=== PATIENT | female | born 1995 | race Caucasian/White ===

== ENCOUNTER 2020-11-14 15:58 | Outpatient (CLI) | payer MEDICAID, SELFPAY ==
--- NOTE | ~2020-11-14 | US_ITS ---
EXAMINATION: US OB follow up DATE: 11/14/2020 16:40 INDICATION: Routine care TECHNIQUE: Real-time ultrasound of the pelvis was performed. The interpreting radiologist was not pre sent for the study. COMPARISON: None. FINDINGS: There is a single living fetus in vertex presentation. The placenta is anterior. heart rate is 142 beats per minute (bpm). The amniotic fluid index is 12.4 cm, which is normal (5th%-95%: 8.6-24. 2 cm at 32 weeks estimated gestational age). The following biometric data were obtained: BPD: 8.0 cm -> 32 weeks 1 days Head circumference: 30.2 cm -> 33 weeks 4 days Abdominal circumference: 28.6 cm -> 32 weeks 4 days Femur length: 6.5 cm -> 33 weeks 4 days These measurements are concordant. Head circumference to abdominal circumference ratio: 1.06 (normal range 0.96-1.11). Estimated weight: 2085 g (+/-) 313 g. or 4 lbs. 10 oz. (+/-) 11 oz. IMPRESSION: 1. Single living fetus in vertex presentation with heart rate of 142 bpm. 2. Gestational age by ultrasound of 33 weeks 0 day(s) +/- 2 week(s) 2 day(s) with ultrasound estimate d date of delivery (DANIA) of 01/02/2021. Estimated weight is 52nd percentile by Hadlock criteria when 01/05/2021 is used as the DANIA. Please correlate with clinical information or earlier ultrasounds for most accurate DANIA. 3. Normal amniotic fluid index of 12.4 cm.. Reviewed, dictated and finalized at location A. IMPRESSION: 1. Single living fetus in vertex presentation with heart rate of 142 bpm. 2. Gestational age by ultrasound of 33 weeks 0 day(s) +/- 2 week(s) 2 day(s) wi th ultrasound estimated date of delivery (DANIA) of 01/02/2021. Estimated we ight is 52nd percentile by Hadlock criteria when 01/05/2021 is used as the DANIA. Please correlate with clinical information or earlier ultrasounds for most accu rate DANIA. 3. Normal amniotic fluid index of 12.4 cm..
== END 2020-11-14 15:59 | disposition home or self-care (01) ==
PROVIDERS: Visit Provider Obstetrics & Gynecology
DX: Z34.93 Encounter for supervision of normal pregnancy, unspecified, third trimester (principal); Z3A.33 33 weeks gestation of pregnancy
CPT/HCPCS: 76816

== ENCOUNTER 2021-01-03 06:58 | Inpatient (IN) | payer OTHER, SELFPAY ==
[2021-01-03] VITALS (140 sets, daily range): BP systolic 79–126; BP diastolic 35–89; PULSE 56–134; RESP 16–20; TEMP 36.1–37.1; O2SAT 94–100; BMI 28.2
--- NOTE | 2021-01-03 06:58 | LDADM ---
This patient, Cary Waters, was admitted to Labor/Delivery/Recovery 104 on 01/03/21 at 06:58. Plans for labor, pain management and were discussed with patient. Patient/family oriented to hospital policies and general routines including ID bracelet, bed and alarms, visiting hours, pain management, procedures, bathroom and other care routines, personal items, smoking policy, room service/diet and guest tray routines, security routines, and visiting hours. Patient/Family are encouraged to report perceived risks to care and to ask questions if they do not understand what they are told or what they should do. See OBIX for further documentation.
[2021-01-03 08:25] LABS: Basophils Absolute Auto 0.1 K/mm3 (0.0-0.1); Basophils Percent Auto 0.6 % (0.2-1.2); Eosinophils Absolute Auto 0.2 K/mm3 (0-0.3); Eosinophils Percent Auto 1.2 % (0-4.4); Hematocrit 34.5 % (37.0-47.0); Hemoglobin 11.3 g/dL (12.0-15.0); Immature Granulocyte Absolute 0.29 K/mm3 (0.00-0.031); Immature Granulocyte Percent A 2.3 % (0-0.5); Lymphocytes Absolute Auto 2.72 K/mm3 (0.9-3.2); Lymphocytes Percent Auto 21.8 % (18.3-44.2); Mean Corpuscular HGB Conc 32.8 g/dl (32-36); Mean Corpuscular Hemoglobin 28.8 pg (26-34); Mean Corpuscular Volume 87.8 fl (80-100); Mean Platelet Volume 11.8 fl (7.4-10.4); Monocytes Percent Auto 7.9 % (2.6-8.5); Neutrophils Absolute Auto 8.3 K/mm3 (1.3-6.7); Neutrophils Percent Auto 66.2 % (45.5-73.1); Platelet Count Result 202 k/mm3 (150-375); Red Blood Count 3.93 M/mm3 (4.2-5.4); Red Cell Distribution Width 12.6 % (11.5-14.5); White Blood Count 12.5 K/mm3 (4.5-10.0)
[2021-01-03] MEDS: OXYTOCIN 30 UNITS/NS 500 ML 30 UNITS/500 ML BAG IV CONT (08:29)
[2021-01-03] MEDS: AMPICILLIN 2 GM/NS 100 ML 2 GM/100 ML BAG IVPB (08:30)
[2021-01-03] MEDS: LACTATED RINGERS 1,000 ML 125 ML IV CONT ×3 (08:30→16:31)
[2021-01-03 08:55] LABS: Amphetamine Screen Urine Negative (Negative); Barbiturate Screen Urine Negative (Negative); Benzodiazepines Screen Urine Negative (Negative); Cannabinoid Screen Urine Positive (Negative); Cocaine Screen Urine Negative (Negative); Methadone Screen Urine Negative (Negative); Opiate Screen Urine Negative (Negative); Phencyclidine Screen Urine Negative (Negative)
--- NOTE | 2021-01-03 09:03 | PM.IMHP ---
H&P: HPI History of Present Illness Date/Time: 01/03/21 09:03 25 yo at 39wk5d presents for IOL. complicated by MTHFR, GBS, and smoking I explained her condition procedure and risks involved she understands accepts and agrees to proceed low-dose Pitocin protocol and GBS antibiotic prophylaxis penicillin Baby girl Tatum, combo taylor, NCB , vamp marker Dr Camejo ,[facility] Chief Complaint: term elective induction of labor GBS positive Review of Systems Review of Systems: All systems reviewed & are unremarkable except as noted in HPI and below Constitutional: Constitutional: Reports no additional constitutional complaints Eyes: Eyes: Reports no additional eye complaints ENT: Reports system reviewed and no additional complaints, except as documented Cardiovascular: Cardiovascular: Reports no additional cardiovascular complaints Respiratory: Respiratory: Reports no additional respiratory complaints Gastrointestinal: Gastrointestinal: Reports no additional gastrointestinal complaints Genitourinary: Genitourinary: Reports no additional female genitourinary complaints Musculoskeletal: Musculoskeletal: Reports no additional musculoskeletal complaints Integumentary/Breasts: Skin/Breast: Reports system reviewed and no additional complaints, except as docu Neurologic: Reports system reviewed and no additional complaints, except as documented Psychiatric: Psychiatric: Reports no additional psychiatric complaints Endocrine: Endocrine: Reports no additional endocrine complaints Hematologic/Lymphatic: Hematologic/Lymphatic: Reports no additional hematologic/lymphatic complaints Allergic/Immunologic: Allergic/Immunologic: Reports no additional allergic/immunologic complaints [facility] Past Medical History Medical History (Updated 01/03/21 @ 09:19 by Felix Solorio MD) Anemia affecting 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), +RV culture, currently History of gonorrhea Smoker Term Vaginal delivery 12/20/201214014 hrs.6 lbs.12 oz.FVaginalFull Term Birth[place] in [place] Vaginal delivery 01/19/201413710 hrs.6 lbs.FVaginalPremature BirthRegional-EpiduralYDelivered early Low VICENTE,Born in [place] Family History Family History (Updated 01/03/21 @ 09:16 by Felix Solorio MD) Mother Heart disease Diabetes mellitus Hypertension Acute myocardial infarction Social History Social History (Updated 01/03/21 @ 09:16 by Felix Solorio MD) Smoking packs per day: 0.5 Smoking cigarettes per day: 10.0 Years smoked: 7 Smoking pack-years: 3.50 Smoking status: Current every day smoker Tobacco type: cigarettes Alcohol intake: never Substance use: never Living arrangements: with family Occupation/Education: unemployed Gender identity (if verbalized by the patient): Female Sexual Orientation (if Verbalized by the Patient): Straight or Heterosexual Spiritual care concerns: No Agree to blood products: Yes Meds Home Medications and Allergies Home Medications Medication Instructions Recorded Confirmed Type 1 tablet PO DAILY 01/03/21 01/03/21 History Allergies Allergy/AdvReac Type Severity Reaction Status Date / Time codeine Allergy Itching Verified 01/03/21 08:06 Vital Signs Vital Signs - 24 hr 01/03/21 07:50 01/03/21 07:54 01/03/21 08:00 Temperature 97.9 F Pulse Rate 79 87 Respiratory Rate 16 Blood Pressure 110/69 101/70 01/03/21 08:15 01/03/21 08:30 01/03/21 08:45 Temperature Pulse Rate 79 80 70 Respiratory Rate Blood Pressure 111/65 114/73 109/64 01/03/21 09:00 Temperature Pulse Rate 83 Respiratory Rate Blood Pressure 106/62 Exam Const: General: cooperative, healthy appearing, comfortable, no acute distress, well developed, alert, awake and Physically active Nutritional Appearance: average body h
--- NOTE | 2021-01-03 09:20 | P.HPUP_ITS ---
History and Physical Update Update Date/Time: 01/03/21 09:20 History and Physical has been reviewed, including an updated exam of the patient. There are NO changes in the patient's condition. Risks, benefits, and alternatives have been discussed and questions answered. Patient agrees to proceed with procedure. 25 yo at 39wk5d presents for IOL. complicated by MTHFR, GBS, and smoking I explained her condition procedure and risks involved she understands accepts and agrees to proceed low-dose Pitocin protocol and GBS antibiotic prophylaxis penicillin Baby girl jeanmarie Winn, NCB , manager emergency department Dr Camejo ,[facility]
--- NOTE | 2021-01-03 09:21 | P.HP_ITS ---
Obstetrics - Admit Note Admission Note: record reviewed. No pertinent additions to the history and/or any subsequent changes in the physical findings that are not consistent with the expected course of the were found. Additions to the history and/or subsequent changes in the physical findings follow. None. 25 yo at 39wk5d presents for IOL. complicated by MTHFR, GBS, and smoking I explained her condition procedure and risks involved she understands accepts and agrees to proceed low-dose Pitocin protocol and GBS antibiotic prophylaxis penicillin Baby girl jeanmarie Winn, NCB , property insurance agent Dr Camejo ,[facility]
[2021-01-03 09:36] LABS: Rubella IgG Antibody 7.6 IU/ML
--- NOTE | 2021-01-03 09:57 | WPDANESEPP ---
Anes - Eval Pre Procedure Procedure: labor epidural Date/Time: 01/03/21 09:57 Surgeon: ross Pre Op Diagnosis: Induction Patient Data Age: 25 Gender: F Height: 1.57 m Weight: 70 kg Last Vital Signs Temp 36.7 C 01/03/21 09:30 Pulse 64 01/03/21 09:45 Resp 16 01/03/21 07:50 BP 102/62 01/03/21 09:45 Allergies Allergy/AdvReac Type Severity Reaction Status Date / Time codeine Allergy Itching Verified 01/03/21 08:06 Home Medications Medication Instructions Recorded Confirmed Type 1 tablet PO DAILY 01/03/21 01/03/21 History Laboratory Tests 01/03/21 01/03/21 01/03/21 07:51 07:51 07:52 WBC 12.5 K/mm3 H K/mm3 (4.5-10.0) RBC 3.93 M/mm3 L M/mm3 (4.2-5.4) Hgb 11.3 g/dL L g/dL (12.0-15.0) Hct 34.5 % L % (37.0-47.0) MCV 87.8 fl fl (80-100) MCH 28.8 pg pg (26-34) MCHC 32.8 g/dl g/dl (32-36) RDW 12.6 % % (11.5-14.5) Plt Count 202 k/mm3 k/mm3 (150-375) MPV 11.8 fl H fl (7.4-10.4) Immature Gran % (Auto) 2.3 % H % (0-0.5) Neut % (Auto) 66.2 % % (45.5-73.1) Lymph % (Auto) 21.8 % % (18.3-44.2) Cowley % (Auto) 7.9 % % (2.6-8.5) Eos % (Auto) 1.2 % % (0-4.4) Baso % (Auto) 0.6 % % (0.2-1.2) Lymph # (Auto) 2.72 K/mm3 K/mm3 (0.9-3.2) Cowley # (Auto) 1.0 K/mm3 H K/mm3 (0.1-0.6) Eos # (Auto) 0.2 K/mm3 K/mm3 (0-0.3) Baso # (Auto) 0.1 K/mm3 K/mm3 (0.0-0.1) Abs Immat Gran (auto) 0.29 K/mm3 H K/mm3 (0.00-0.031) Absolute Neuts (auto) 8.3 K/mm3 H K/mm3 (1.3-6.7) Absolute Nucleated RBC 0.0 K/mm3 K/mm3 (0.0-0.012) Nucleated RBC % 0.0 % % (0.0-0.2) Urine Opiates Screen Negative (Negative) Urine Methadone Screen Negative (Negative) Ur Barbiturates Screen Negative (Negative) Ur Phencyclidine Scrn Negative (Negative) Ur Amphetamine Screen Negative (Negative) U Benzodiazepines Scrn Negative (Negative) Urine Cocaine Screen Negative (Negative) U Cannabinoids Screen Positive A (Negative) RPR Rubella IgG Antibody 7.6 IU/ML L IU/ML (10 - ) Blood Type Antibody Screen 01/03/21 01/03/21 07:52 07:52 WBC RBC Hgb Hct MCV MCH MCHC RDW Plt Count MPV Immature Gran % (Auto) Neut % (Auto) Lymph % (Auto) Cowley % (Auto) Eos % (Auto) Baso % (Auto) Lymph # (Auto) Cowley # (Auto) Eos # (Auto) Baso # (Auto) Abs Immat Gran (auto) Absolute Neuts (auto) Absolute Nucleated RBC Nucleated RBC % Urine Opiates Screen Urine Methadone Screen Ur Barbiturates Screen Ur Phencyclidine Scrn Ur Amphetamine Screen U Benzodiazepines Scrn Urine Cocaine Screen U Cannabinoids Screen RPR Pending Rubella IgG Antibody Blood Type B Positive Antibody Screen Negative Patient hx anesthesia problems: none Family hx anesthesia problems: none PMFSH Past Medical History Medical History Anemia affecting Compound heterozygous MTHFR mutation [id number] GBS (group B Streptococcus carrier), +RV culture, currently History of gonorrhea Smoker Term Vaginal delivery 12/20/201214014 hrs.6 lbs.12 oz.FVaginalFull Term BirthRegional[place]pidural[place] in [place] Vaginal delivery 01/19/201413710 hrs.6 lbs.FVaginalPremature BirthRegional-EpiduralYDelivered early Low VICENTE,Born in [place] Family History Family Histor
[2021-01-03 11:07] LABS: Rapid Plasma Reagin Non-Reactive (NonReactive)
[2021-01-03] MEDS: AMPICILLIN 1 GM/NS 50 ML 1 GM/50 ML BAG IVPB ×2 (12:39→16:31)
--- NOTE | 2021-01-03 13:20 | PM.OBPNLAB ---
Pain Control Date/time seen: 01/03/21 13:21 Pain control: tolerating well Pelvic Exam Dilation (cm): 2 Effacement (%): 70 station: -3 Amniotic membrane status: Ruptured (A ROM clear fluid intrauterine pressure catheter placed) Contractions Monitor mode: External Contraction frequency: 3 Contraction duration: 45 Contraction pattern: Regular Contraction phase: Contraction Contraction intensity: Mild Status status: Category l Assessment and Plan Pitocin rate (mU/min): 20 Assessment: induction ongoing Plan: continuous present management
--- NOTE | 2021-01-03 15:00 | PM.OBPNLAB ---
Pain Control Date/time seen: 01/03/21 15:00 Pelvic Exam Dilation (cm): 4 Effacement (%): 70 station: -2 Amniotic membrane status: Ruptured (A ROM clear fluid intrauterine pressure catheter placed) Contractions Monitor mode: Internal (iupc) Contraction frequency: 3 Contraction pattern: Regular Contraction phase: Contraction Contraction intensity: Mild Status status: Category l Assessment and Plan Pitocin rate (mU/min): 20 Assessment: active labor Plan: continuous present management
[2021-01-03] MEDS: fentaNYL CITRATE INJ (*CRX) 100 MCG/2 ML VIAL 50 MCG IV PUSH (15:23)
--- NOTE | 2021-01-03 18:10 | PM.OBPNLAB ---
Pain Control Date/time seen: 01/03/21 18:10 Pelvic Exam Dilation (cm): 6 Effacement (%): 90 station: -1 Amniotic membrane status: Ruptured (A ROM clear fluid intrauterine pressure catheter placed) Contractions Monitor mode: Internal (iupc) Contraction frequency: 3 Contraction duration: 40 Contraction pattern: Regular Contraction phase: Contraction Contraction intensity: Strong/Firm Status status: Category l Assessment and Plan Pitocin rate (mU/min): 20 Assessment: active labor Plan: continuous present management Comments: epidural
--- NOTE | 2021-01-03 19:11 | P.PCNOB_ITS ---
OB - Delivery Note Procedure Delivery date: 01/03/21 Procedure: Normal spontaneous vertex vaginal delivery a viable female infant and placenta events: Labor Induction Intrapartal events: None Induction method: per pitocin protocol Delivery augmentation: rupture of membranes Delivery monitor: external FHT and internal uterine Route of delivery: Episiotomy description: None Laceration Description: None Specimen: Yes (Placenta, cord blood, cord blood gases) Quantitative Blood Loss (ml): 50 Anesthesia type: Epidural Disposition: floor Complications: None Narrative: Complete cervical dilation pushed in the 2nd stage of labor without difficulty normal delivery of vertex over an intact perineum spontaneously anterior shoulder delivered infant delivered and placed on the maternal abdomen. Terminal meconium noted from the baby girl placed on maternal abdomen cord was clamped and cut spontaneous respirations and cry no observed abnormalities on the . scores 8 9 weight 7 lb 15 oz 20 in long handed to the nursery nurse in attendance normal transition period. Cord gases and cord blood obtained placenta delivered intact three-vessel cord Pitocin given intravenously the uterus contracted well blood clots membranes removed from the intrauterine cavity no cuts tears or lacerations sponge count correct no sponges left in the vagina the rectal sphincters intact mom's in LDR room 1. 0 4 stable condition [facility] Baby Date of : 01/03/21 Time of : 19:01 Weeks of gestation at delivery: 40 Infant gender: Female Weight (pounds): 7 Weight (ounces): 15 presentation: vertex position: Left Occiput Anterior Placenta delivery description: Spontaneous and Normal Configuration cord vessel description: 3 Vessels score one minute: 8 score five minutes: 9 Narrative: Normal transition to nursery in stable condition
[2021-01-03] MEDS: OXYTOCIN 30 UNITS/NS 500 ML 30 UNITS/500 ML BAG 125 UNITS IV CONT (19:39)
[2021-01-03] MEDS: IBUPROFEN 600 MG TABLET PO (21:43)
[2021-01-03] MEDS: BENZOCAINE 20% AER SPR (*SP) 56 GM CAN 1 SPRAY TOPICAL (21:44)
[2021-01-03] MEDS: WITCH HAZEL 40 PADS 1 PAD TOPICAL (21:44)
[2021-01-04] VITALS: BP 95/48; PULSE 72; RESP 16; TEMP 36.7
[2021-01-04] MEDS: IBUPROFEN 600 MG TABLET PO ×4 (03:00→22:25)
[2021-01-04 03:13] VITALS: BP 103/71; PULSE 75; RESP 16; TEMP 36.7
[2021-01-04 05:33] LABS: Hematocrit 34.9 % (37.0-47.0); Hemoglobin 11.4 g/dL (12.0-15.0)
[2021-01-04] MEDS: MULTIVIT/MIN/PREN/FOL AC/IRON TABLET 1 TAB PO (08:11)
--- NOTE | 2021-01-04 08:11 | PM.OBPNVD ---
OB - PN: Subj Subjective Date/time seen: 01/04/21 08:11 Patient comments: no complaints and pain well controlled baby status: doing well [place] feeding status: exclusively bottle feeding OB - PN: Obj Data Labs CBC & Chem 7: 01/04/21 03:06 Labs: Laboratory Results - last 24 hr 01/03/21 01/03/21 01/03/21 07:51 07:51 07:52 WBC 12.5 H RBC 3.93 L Hgb 11.3 L Hct 34.5 L MCV 87.8 MCH 28.8 MCHC 32.8 RDW 12.6 Plt Count 202 MPV 11.8 H Immature Gran % (Auto) 2.3 H Neut % (Auto) 66.2 Lymph % (Auto) 21.8 Anderson % (Auto) 7.9 Eos % (Auto) 1.2 Baso % (Auto) 0.6 Lymph # (Auto) 2.72 Anderson # (Auto) 1.0 H Eos # (Auto) 0.2 Baso # (Auto) 0.1 Abs Immat Gran (auto) 0.29 H Absolute Neuts (auto) 8.3 H Absolute Nucleated RBC 0.0 Nucleated RBC % 0.0 Urine Opiates Screen Negative Urine Methadone Screen Negative Ur Barbiturates Screen Negative Ur Phencyclidine Scrn Negative Ur Amphetamine Screen Negative U Benzodiazepines Scrn Negative Urine Cocaine Screen Negative U Cannabinoids Screen Positive A RPR Rubella IgG Antibody 7.6 L Blood Type Antibody Screen 01/03/21 01/03/21 01/04/21 07:52 07:52 03:06 WBC RBC Hgb 11.4 L Hct 34.9 L MCV MCH MCHC RDW Plt Count MPV Immature Gran % (Auto) Neut % (Auto) Lymph % (Auto) Anderson % (Auto) Eos % (Auto) Baso % (Auto) Lymph # (Auto) Anderson # (Auto) Eos # (Auto) Baso # (Auto) Abs Immat Gran (auto) Absolute Neuts (auto) Absolute Nucleated RBC Nucleated RBC % Urine Opiates Screen Urine Methadone Screen Ur Barbiturates Screen Ur Phencyclidine Scrn Ur Amphetamine Screen U Benzodiazepines Scrn Urine Cocaine Screen U Cannabinoids Screen RPR Non-reactive Rubella IgG Antibody Blood Type B Positive Antibody Screen Negative OB - PN A/P Plan day: 1 Plan: routine care, discharge home and follow up 6 weeks Time Spent With Patient Time: Total time spent is greater than 50% in coordination of care (as documented) at patient's floor/unit and/or counseling patient: Time with patient: less than 15 minutes Review of Systems Review of Systems: All systems reviewed & are unremarkable except as noted in HPI and below Exam Const: General: comfortable, no acute distress, alert and awake Orientation/consciousness: patient oriented x3 Chest: Breast/axilla inspection: normal inspection of the breasts Resp: Effort & Inspection: normal respiratory effort Cardio: Rate: regular rate GI: GI Palp: Yes Soft to palpation Auscultation: normal bowel sounds : External Female Exam: normal external appearance Bimanual exam- vagina & uterus: non-tender Psych: Appearance: grossly normal Affect: normal affect Attitude: cooperative Thought content: Yes Normal thought content present Judgement: Good judgement present (Psych)
[2021-01-04 08:13] VITALS: BP 109/72; PULSE 60; RESP 18; TEMP 36.3; O2SAT 99
--- NOTE | 2021-01-04 09:15 | WPDANLDPN2 ---
Anes-Prog Note L&D Date/Time: 01/04/21 09:15 Comfortable throughout: labor and delivery Neuraxial method: epidural Epidural/Spinal procedure site: clean & non-tender Neuro status: Neuro function grossly intact. Cardiovascular status: normal Respiratory status: normal Airway patency: baseline Mental status: baseline Post-Op hydration status: normal Vital Signs: Last Vital Signs Temp 36.7 C 01/04/21 03:13 Pulse 75 01/04/21 03:13 Resp 16 01/04/21 03:13 BP 103/71 01/04/21 03:13 Pulse Ox 99 01/03/21 19:02 Pain score (VAS): 0 I/O: Intake & Output 01/03/21 01/04/21 01/04/21 23:59 07:59 15:59 Intake Total 2250 Output Total 105 Balance 2145 Post-procedural complaints: none Patient feedback: Patient satisfied with anesthetic care.
[2021-01-04 12:45] VITALS: BP 101/63; PULSE 92; RESP 16; TEMP 36.7; O2SAT 100
[2021-01-04] MEDS: DOCUSATE SODIUM 100 MG CAPSULE PO (17:58)
[2021-01-04] MEDS: TETANUS,DIPHTHERIA,AC PERTUSSIS ADULT (0.5 ML) BOOSTRIX IM (17:59)
[2021-01-04 19:22] VITALS: BP 103/59; PULSE 75; RESP 16; TEMP 36.6
[2021-01-05] MEDS: ACETAMINOPHEN 325 MG TABLET 650 MG PO ×2 (01:50→08:40)
[2021-01-05] MEDS: IBUPROFEN 600 MG TABLET PO ×2 (05:00→14:05)
[2021-01-05 08:30] VITALS: BP 102/66; PULSE 59; RESP 16; TEMP 36.7; O2SAT 97
[2021-01-05] MEDS: MULTIVIT/MIN/PREN/FOL AC/IRON TABLET 1 TAB PO (08:40)
--- NOTE | 2021-01-05 10:45 | PCCCNOTE ---
Addendum entered by ADOLFO Lan 01/05/21 14:24: 1420: Received an email from [facility] that states: Your information has been reviewed and assessed by a Director Fixed Income and was also approved by a extermination supervisor. The information you provided did not meet one of the criteria for an investigation (eligible victim, eligible perpetrator, eligible event, or jurisdiction). The information as been documented and will be kept on file. Should you learn of further information or have additional concerns, please feel free to contact us. The final intake ID number for this report is [id number]. Original Note: Care Coordination: Pt. tested positive for THC on her urine drug screen. Pt. reports she uses it for her nausea. Baby's urine drug screen was negative. Baby's meconium is pending 01/04. Pt. reports living at home with TITUS Land and two other daughters. Pt. reports this is her third baby. Pt. reports her family is in [place] but TITUS family is supportive and local. Pt. reports they have everything needed for baby and not lacking any supplies. Pt. reports she is in the process of setting up WIC and already has Food stamps. Pt. denies any prior [facility] involvement. resources provided to pt. [facility] Online Report #[id number]. Updates given to ANUSHKA Ring.
--- NOTE | 2021-01-05 13:10 | PC.NURSE ---
Patient viewed the discharge video Mother & Baby Care, The First Two Weeks . Patient was given the opportunity and encouraged to ask questions. Patient verbalized understanding of information shared and has been given the mother/baby guide for home reference.
--- NOTE | 2021-01-05 14:46 | PC.NURSE ---
0830-Upon entering room, RN found baby napping in bed with mother; RN instructed mother to place baby in crib while sleeping; informed mother that co-sleeping with baby is not recommended.
[2021-01-05] MEDS: MEASLES,MUMPS,RUBELLA VACCINE 0.5 ML VIAL SUB-Q (15:07)
--- NOTE | 2021-01-05 19:19 | PM.OBDSVD ---
DS: Admitting Diagnosis Admitting Diagnosis Admitting Diagnosis: (1) Term : Code(s): Z34.90 - Encounter for supervision of normal , unspecified, unspecified trimester Status: Acute (2) Encounter for elective induction of labor: Code(s): Z34.90 - Encounter for supervision of normal , unspecified, unspecified trimester Status: Acute (3) GBS (group B Streptococcus carrier), +RV culture, currently : Code(s): O99.820 - Streptococcus B carrier state complicating Status: Acute (4) Compound heterozygous MTHFR mutation C677T/[id number]: Code(s): Z15.89 - Genetic susceptibility to other disease Status: Acute (5) Smoker: Code(s): F17.200 - Nicotine dependence, unspecified, uncomplicated Status: Acute DS: Discharge Diagnosis Discharge Diagnosis (1) Term delivered: Code(s): O80 - Encounter for full-term uncomplicated delivery Status: Acute (2) Encounter for elective induction of labor: Code(s): Z34.90 - Encounter for supervision of normal , unspecified, unspecified trimester Status: Acute (3) Smoker: Code(s): F17.200 - Nicotine dependence, unspecified, uncomplicated Status: Acute (4) GBS (group B Streptococcus carrier), +RV culture, currently : Code(s): O99.820 - Streptococcus B carrier state complicating Status: Acute (5) Compound heterozygous MTHFR mutation C677T/[id number]: Code(s): Z15.89 - Genetic susceptibility to other disease Status: Acute OB - DS: Summary Hospital Course Time spent discussing smoking cessation with patient: 3 to 10 minutes OB Procedures : Ultrasound OB Procedures Intrapartum: Spontaneous Vag Delivery and GBS prophylaxis OB Procedures: : None Peripartum Data Infant Delivery Method: Natural Vaginal Laceration Description: None Episiotomy description: None complications: none [place] 1: Gender: Female Disposition of : home Status at Discharge Cognitive/behavioral status at discharge: Normal Functional status at discharge: independent ambulation Overall status at discharge: patient is back to baseline Time Spent with Patient Time attestation: Total time spent providing and/or coordinating discharge services: Time spent: Less than 30 minutes Exam Const: General: cooperative, healthy appearing, comfortable, no acute distress, well developed, alert, awake and Physically active Nutritional Appearance: average body habitus Orientation/consciousness: patient oriented x3 Limitations: no limitations HENMT: Head: normal to inspection Eyes: General: appearance normal, both eyes and all related structures Neck: Neck: normal visual inspection Chest: Chest palpation & inspection: normal inspection of the chest Resp: Effort & Inspection: normal respiratory effort Cardio: Rate: regular rate Rhythm: regular rhythm GI: Inspection: normal to inspection GI Palp: Yes Soft to palpation Auscultation: normal bowel sounds : External Female Exam: normal external appearance Bimanual exam- vagina & uterus: non-tender Back/Spine/Pelvis: Back: no CVA tenderness Skin: General skin exam: normal color Neuro: General: patient oriented x3, gait normal, tone normal and moves all extremities Extrem: General: normal to inspection and full ROM Psych: Appearance: grossly normal Mental Status: mental status grossly normal Speech and movement: Normal speech and movement present Affect: normal affect Attitude: cooperative Thought process: Normal thought process present Thought content: Yes Normal thought content present Insight: Good insight present (Psych) Judgement: Good judgement present (Psych) DS: Data Data Completed and Pending Labs on day of discharge: Labs from last 24 hours 01/03/21 01/03/21 01/03/21 07:52 07:52 07:52 WBC 12.5 H RBC 3.93 L Hgb 11
== END 2021-01-05 15:38 | disposition home or self-care (01) | DRG 560 ==
LOC: ANHLDR 19:24 → ANHOB2 23:30
PROVIDERS: Admitting Provider Obstetrics & Gynecology; Visit Provider Obstetrics & Gynecology
DX: O99.284 Endocrine, nutritional and metabolic diseases complicating childbirth (principal); E72.12 Methylenetetrahydrofolate reductase deficiency; O99.824 Streptococcus B carrier state complicating childbirth; O99.334 Smoking (tobacco) complicating childbirth; F17.210 Nicotine dependence, cigarettes, uncomplicated; O77.0 Labor and delivery complicated by meconium in amniotic fluid; O99.324 Drug use complicating childbirth; F12.90 Cannabis use, unspecified, uncomplicated; Z3A.39 39 weeks gestation of pregnancy; Z37.0 Single live birth
CPT/HCPCS: 36415; 80307; 85014; 85018; 85025; 86592; 86762; 86850; 86900; 86901; 88307; 90710; 90715; A9270; J0290; J2590; J2795; J3010; J7120

== ENCOUNTER 2022-01-21 15:02 | Outpatient (CLI) | payer OTHER, MEDICAID, SELFPAY ==
--- NOTE | ~2022-01-21 | US_ITS ---
EXAMINATION: US pelvic complete DATE: 01/21/2022 15:43 INDICATION: IUD in expected position. Pelvic pain. Comparison:No prior studies for comparison. TECHNIQUE: Multiple transabdominal sonographic images of the pelvis performed. FINDINGS: The uterus measures 7 x 5.7 x 3.5 cm. The endometrial complex is not well delineated. There is an IUD in the endometrium. The right ovary measures 3.2 x 2.6 x 1.7 cm and the left ovary measures 2.2 x 1.6 x 2.4 cm. There ar e small follicles in each ovary. Normal doppler signal in both ovaries. There is no free fluid in the pelvis. There are no abnormal masses seen on either side. IMPRESSION: 1. Unremarkable pelvic ultrasound. IUD in expected position in the pelvis. Reviewed, dictated and finalized at location A.
--- NOTE | ~2022-01-21 | CT_ITS ---
EXAMINATION: CT abdomen pelvis w con DATE: 01/21/2022 15:53 INDICATION: Abdominal pain TECHNIQUE: Computed tomography (CT) of the abdomen and pelvis was performed with 100 CC Omnipaque 300 intravenous contrast. Automated exposure control and iterative reconstruction technique were employe d. Exam dose: 318.77 mGy-cm total exam DLP. COMPARISON: None. FINDINGS: The lung bases are clear. Normal heart size. No pericardial or pleural effusion. The liver, gallbladder, bile ducts, spleen, pancreas, pancreatic duct, and adrenal glands and kidneys are unremarkable. Normal caliber of the abdominal aorta. No intraperitoneal or retroperitoneal or pelvic mass lesion or adenopathy or ascites. No bowel obstruction, bowel wall thickening, pneumatosis or intraperitoneal free air. The urinary bladder is rather evacuated, unremarkable. The IUD is in unexpected transverse rather than vertical position, the base of the IUD situated in th e right lateral cornual area, with one limb extending into the left cornea and the other short limb e xtending caudally into the endometrial cavity of the body of the uterus. No bowel obstruction, bowel wall thickening, pneumatosis or intraperitoneal free air. Small fat-containing umbilical hernia. Included skeletal structures are unremarkable. IMPRESSION: Disoriented IUD, in transverse rather than vertical orientation Reviewed, dictated and finalized at Location A. Reviewed, dictated and finalized at location B.
== END 2022-01-21 15:03 | disposition home or self-care (01) ==
PROVIDERS: PCP Family Medicine
DX: R10.13 Epigastric pain (principal); Z97.5 Presence of (intrauterine) contraceptive device
CPT/HCPCS: 74177; 76856; Q9967

== ENCOUNTER 2023-09-17 22:50 | Emergency (ER) | payer OTHER, SELFPAY ==
[2023-09-17 22:52] VITALS: BP 116/66; PULSE 103; RESP 16; TEMP 36.3; O2SAT 97
== END 2023-09-18 07:03 | disposition left against medical advice (07) ==
PROVIDERS: PCP Family Medicine
DX: R31.9 Hematuria, unspecified (principal)
CPT/HCPCS: 99199

== ENCOUNTER 2024-01-03 16:43 | Observation (INO) | payer OTHER, SELFPAY ==
[2024-01-03 16:00] VITALS: BP 102/51; PULSE 79
[2024-01-03 16:15] VITALS: BP 97/59; PULSE 84
[2024-01-03 16:30] VITALS: BP 99/50; PULSE 73
--- NOTE | 2024-01-03 16:44 | PC.NURSE ---
1640: RN phoned drone pilot OB, Dr. Thornton to inform him of patient's fall. RN reported vital signs,FHT tracing, one contraction noted, patient's stomach pain she is rating a 6, and that patient is marking movement. OB aware patient is not having any bleeding or leaking of fluid. Orders to discharge patient home with instructions on when to return to the hospital.
[2024-01-03 16:51] VITALS: BMI 26.2
--- NOTE | 2024-01-03 16:51 | OBADM ---
This patient, Cary Waters, admitted to the OB room OB Post 117 for observation. Patient/family oriented to hospital policies and general routines including ID bracelet, bed and alarms, visiting hours, pain management, procedures, bathroom and other care routines, personal items, smoking policy, room service/diet, and visiting hours. Patient/Family are encouraged to report perceived risks to care and to ask questions if they do not understand what they are told or what they should do.
[2024-01-03 16:56] VITALS: BP 97/59; PULSE 86
--- NOTE | 2024-01-11 12:27 | PM.OBTRLD ---
OB - Triage/Final Diagnosis Visit Information Comments/Additional reasons for admission: I have assessed the risk for this patient, Cary Waters, and determined that she would benefit from observation care. Final Diagnosis (1) Fall: Code(s): W19.XXXA - Unspecified fall, initial encounter Status: Acute
== END 2024-01-03 16:55 | disposition home or self-care (01) ==
PROVIDERS: Admitting Provider Obstetrics & Gynecology; PCP Family Medicine; Visit Provider Obstetrics & Gynecology
DX: Z04.3 Encounter for examination and observation following other accident (principal); O26.899 Other specified pregnancy related conditions, unspecified trimester; Z3A.00 Weeks of gestation of pregnancy not specified
CPT/HCPCS: 59025; G0378; G0379

== ENCOUNTER 2024-03-15 04:57 | Inpatient (IN) | payer OTHER, SELFPAY ==
[2024-03-15] VITALS (180 sets, daily range): BP systolic 76–151; BP diastolic 40–136; PULSE 59–184; RESP 16; TEMP 36.3–37.2; O2SAT 92–100; BMI 29.4
--- OUTSIDE RECORDS SUMMARY | 2024-03-15 05:02 | XMS_ITS | Continuity of Care Document ---
Author Name Unknown Organization [facility] Address [address] [place] [id number] Encounter [facility] Financial Number [id number] Date(s): 11/26/21 - 11/26/[address] [id number] Encounter Diagnosis Radiculopathy, cervical region(Final) - Discharge Disposition: Home or Self Care Attending Physician: Vasquez Wiley M.D. Admitting Physician: Vasquez Wiley M.D. Referring Physician: Vasquez Wiley M.D.
--- NOTE | 2024-03-15 06:20 | PM.IMHP ---
H&P: HPI History of Present Illness Date/Time: 03/15/24 06:20 Chief Complaint: term Narrative: this is a 29-year-old 4 para 3 with an unknown last menstrual period with an EDC of 03/21/2024 confirmed by 10 week ultrasound presents at 39 weeks gestation for induction of labor. She is negative for group B strep in her has been uncomplicated she does smoke weed was asked to stop .. 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 GBS (group B Streptococcus carrier), +RV culture, currently History of gonorrhea Smoker Term Vaginal delivery 12/20/201214014 hrs.6 lbs.12 oz.FVaginalFull Term [facility] [place] Vaginal delivery 01/19/201413710 hrs.6 lbs.FVaginalPremature BirthRegional-EpiduralYDelivered early Low VICENTE,Born in [place] Family History Family History Mother Heart disease Diabetes mellitus Hypertension Acute myocardial infarction Social History Social History Smoking packs per day: 0.5 Smoking cigarettes per day: 10.0 Years smoked: 7 Smoking pack-years: 3.50 Smoking status: Current every day smoker Tobacco type: cigarettes Alcohol intake: never Substance use: never Living arrangements: with family Occupation/Education: unemployed Gender identity (if verbalized by the patient): Female Sexual Orientation (if Verbalized by the Patient): Straight or Heterosexual Spiritual care concerns: No Agree to blood products: Yes Meds Home Medications and Allergies Home Medications Medication Instructions Recorded Confirmed Type 1 tablet PO DAILY #100 tabs 01/03/21 01/03/21 Rx Allergies Allergy/AdvReac Type Severity Reaction Status Date / Time codeine Allergy Itching Verified 03/02/24 13:10 Vital Signs Vital Signs - 24 hr 03/15/24 06:01 Pulse Rate 82 Blood Pressure 99/56 L Exam Const: General: cooperative, healthy appearing and comfortable Nutritional Appearance: average body habitus Orientation/consciousness: oriented to person, oriented to place and oriented to time HENMT: Head: normal to inspection Resp: Effort & Inspection: normal respiratory effort Cardio: Rate: regular rate Rhythm: regular rhythm Heart sounds: S1 normal heart sound present and S2 normal heart sound present GI: Inspection: normal to inspection : External Female Exam: normal external appearance Speculum Exam - Vagina: normal appearance of the vagina Speculum Exam - Cervix: normal appearance of the cervix ( Cervix 3/75/1. AROM clear. FHTs reassuring) Assessment and Plan Assessment and plan (1) Term : Code(s): Z34.90 - Encounter for supervision of normal , unspecified, unspecified trimester Status: Acute Assessment and Plan: medical induction of labor. Spontaneous vaginal delivery expected. She is an epidural candidate
[2024-03-15 06:39] LABS: Basophils Absolute Auto 0.1 K/mm3 (0.0-0.1); Basophils Percent Auto 0.7 % (0.2-1.2); Eosinophils Absolute Auto 0.2 K/mm3 (0-0.3); Eosinophils Percent Auto 1.2 % (0-4.4); Hematocrit 33.8 % (37.0-47.0); Hemoglobin 11.5 g/dL (12.0-15.0); Immature Granulocyte Absolute 0.85 K/mm3 (0.00-0.031); Immature Granulocyte Percent A 5.7 % (0-0.5); Lymphocytes Absolute Auto 2.65 K/mm3 (0.9-3.2); Lymphocytes Percent Auto 17.8 % (18.3-44.2); Mean Corpuscular Volume 91.1 fl (80-100); Mean Platelet Volume 12.1 fl (7.4-10.4); Monocytes Absolute Auto 1.2 K/mm3 (0.1-0.6); Monocytes Percent Auto 8.3 % (2.6-8.5); Neutrophils Absolute Auto 9.9 K/mm3 (1.3-6.7); Neutrophils Percent Auto 66.3 % (45.5-73.1); Platelet Count Result 163 k/mm3 (150-375); Red Blood Count 3.71 M/mm3 (4.2-5.4); Red Cell Distribution Width 12.9 % (11.5-14.5); White Blood Count 14.9 K/mm3 (4.5-10.0)
--- NOTE | 2024-03-15 06:43 | LDADM ---
This patient, Cary Waters, was admitted to Labor/Delivery/Recovery 103 on 03/15/24 at 04:57. Plans for labor, pain management and were discussed with patient. Patient/family oriented to hospital policies and general routines including ID bracelet, bed and alarms, visiting hours, pain management, procedures, bathroom and other care routines, personal items, smoking policy, room service/diet and guest tray routines, security routines, and visiting hours. Patient/Family are encouraged to report perceived risks to care and to ask questions if they do not understand what they are told or what they should do. See OBIX for further documentation.
[2024-03-15 07:29] LABS: HIV 1/2 Ab P24 Ag Result Negative (Negative)
[2024-03-15] MEDS: LACTATED RINGERS 1,000 ML 125 ML IV CONT ×3 (07:47→16:39)
[2024-03-15] MEDS: OXYTOCIN 30 UNITS/NS 500 ML 30 UNITS/500 ML BAG IV CONT (07:48)
--- NOTE | 2024-03-15 07:50 | P.PNAN_ITS ---
Anes - Eval Pre Procedure Procedure: Labor epidural Date/Time: 03/15/24 07:50 Surgeon: Neal Preop Diagnosis: Abdominal pain with contractions Pre Op Diagnosis: IOL Patient Data Age: 29 Gender: F Height: 1.57 m Weight: 73 kg Last Vital Signs Temp 97.3 F L 03/15/24 07:21 Pulse 80 03/15/24 07:48 BP 97/48 L 03/15/24 07:48 O2 Del Method Room Air 03/15/24 06:39 Allergies Allergy/AdvReac Type Severity Reaction Status Date / Time codeine Allergy Itching Verified 03/02/24 13:10 Home Medications Medication Instructions Recorded Confirmed Type 1 tablet PO DAILY #100 tabs 01/03/21 03/15/24 Rx Laboratory Tests 03/15/24 03/15/24 06:32 06:33 WBC 14.9 H K/mm3 (4.5-10.0) RBC 3.71 L M/mm3 (4.2-5.4) Hgb 11.5 L g/dL (12.0-15.0) Hct 33.8 L % (37.0-47.0) MCV 91.1 fl (80-100) MCH 31.0 pg (26-34) MCHC 34.0 g/dl (32-36) RDW 12.9 % (11.5-14.5) Plt Count 163 k/mm3 (150-375) MPV 12.1 H fl (7.4-10.4) Immature Gran % (Auto) 5.7 H % (0-0.5) Neut % (Auto) 66.3 % (45.5-73.1) Lymph % (Auto) 17.8 L % (18.3-44.2) [place] % (Auto) 8.3 % (2.6-8.5) Eos % (Auto) 1.2 % (0-4.4) Baso % (Auto) 0.7 % (0.2-1.2) Lymph # (Auto) 2.65 K/mm3 (0.9-3.2) [place] # (Auto) 1.2 H K/mm3 (0.1-0.6) Eos # (Auto) 0.2 K/mm3 (0-0.3) Baso # (Auto) 0.1 K/mm3 (0.0-0.1) Abs Immat Gran (auto) 0.85 H K/mm3 (0.00-0.031) Absolute Neuts (auto) 9.9 H K/mm3 (1.3-6.7) Absolute Nucleated RBC 0.000 K/mm3 (0.0-0.012) Nucleated RBC % 0.0 % (0.0-0.2) RPR Pending HIV 1&2 Ab/P24 Ag 4thGn Negative (Negative) Blood Type B Positive Antibody Screen Pending : gestational age HCG: positive Patient hx anesthesia problems: none Family hx anesthesia problems: none Results Review: All pre-operative results and documents have been reviewed as part of the pre- operative evaluation. [facility] Past Medical History Medical History Anemia affecting Compound heterozygous MTHFR mutation [id number] Encounter for elective induction of labor GBS (group B Streptococcus carrier), +RV culture, currently History of gonorrhea Smoker Term Vaginal delivery 12/20/201214014 hrs.6 lbs.12 oz.FVaginalFull Term [facility] in [place] Vaginal delivery 01/19/201413710 hrs.6 lbs.FVaginalPremature BirthRegional-EpiduralYDelivered early Low VICENTE,Born in [place] Family History Family History Mother Heart disease Diabetes mellitus Hypertension Acute myocardial infarction Social History Social History Smoking packs per day: 0.5 Smoking cigarettes per day: 10.0 Years smoked: 7 Smoking pack-years: 3.50 Smoking status: Current every day smoker Tobacco type: cigarettes Alcohol intake: never Substance use: never Do You Feel Safe in your Home?: Yes Lack of Transportation: No Lack of Food: Never True Current Housing: I Have Housing Concerned About Future Housing: No Difficulty Paying Gas/Electric Bills: No Difficulty Paying for Meds: No Currently Unemployed: No Education: High School Diploma/GED Difficulty w/ Childcare or Family Care: No Living arrangements: with family Occupation/Education: unemployed Gender identity (if verbalized by the patient): Female Sexual Orientation (if Verbalized by the Patient): Straight or Heterosexual Spiritual care concerns: No Agree to blood products: Yes Exam Day of Procedure 03/15/24 07:50 Patient weight: overweight Airway: Mallampati scale class II
[2024-03-15 11:11] LABS: Rapid Plasma Reagin Non-Reactive (NonReactive)
--- NOTE | 2024-03-15 11:45 | PM.OBPNLAB ---
Pain Control Date/time seen: 03/15/24 11:45 Pain control: tolerating well Comments: epidural ordered Pelvic Exam Dilation (cm): 4 Effacement (%): 90 station: -1 Amniotic membrane status: Leaking
--- NOTE | 2024-03-15 15:33 | PM.OBPNLAB ---
Pain Control Date/time seen: 03/15/24 15:33 Pain control: tolerating well and epidural Pelvic Exam Dilation (cm): 4 Effacement (%): 90 station: -1 Amniotic membrane status: Leaking
--- NOTE | 2024-03-15 16:19 | PM.OBPNLAB ---
Pain Control Date/time seen: 03/15/24 16:19 Pain control: tolerating well and epidural Pelvic Exam Dilation (cm): 5 Effacement (%): 90 station: -1 Amniotic membrane status: Leaking
[2024-03-15] MEDS: ONDANSETRON INJ 4 MG/2 ML VIAL IV PUSH (18:01)
--- NOTE | 2024-03-15 19:44 | PM.OBPRVD ---
OB - Vaginal Delivery Note Procedure Delivery date: 03/15/24 Events: Elective Induction of Labor Induction method: AROM Delivery augmentation: Pitocin Delivery monitor: External FHT and External Uterine Route of delivery: Episiotomy description: None Laceration Description: None Specimen: No Quantitative Blood Loss (ml): 61 Anesthesia type: Epidural Disposition: Floor Complications: No immediate complications Narrative: The patient was induced via artificial rupture membranes early in the a.m.. She progressed with unremarkable 1st stage of labor had epidural anesthesia placed. When she was complete she pushed delivered the head spontaneously in the NIRAV position. Anterior posterior shoulder delivered spontaneously. Cord clamped x2 and cut infant passed off the table given Apgars of 9 [id number] 9 [id number]. Cord blood was drawn. Placenta delivered intact spontaneously. Twenty of Pitocin placed in the IV to help firm the uterus. The lateral sidewalls were without tears as was the vagina. Blood loss estimated 61cc. All sponge, needle, instrument counts were correct. There were no immediate complications [place] Baby Date of : 03/15/24 Time of : 19:33 Gestational Age by Date: 39 gender: Female Weight (pounds): 6 Weight (ounces): 12 presentation: vertex position: Right Occiput Anterior Placenta delivery description: Spontaneous Cord Vessel Description: 3 Vessels score one minute: 9 score five minutes: 9
--- NOTE | 2024-03-15 19:47 | PM.DS ---
DS: Admitting Diagnosis Discharge Date 03/17/2024 Admitting Diagnosis term DS: Discharge Diagnosis Discharge Diagnosis (1) Encounter for elective induction of labor: Code(s): Z34.90 - Encounter for supervision of normal , unspecified, unspecified trimester Status: Acute (2) Term delivered: Code(s): O80 - Encounter for full-term uncomplicated delivery Status: Acute DS: Summary Hospital Course Reason for hospitalization: the patient was admitted for induction of labor at 39 weeks gestation Hospital Course: patient underwent spontaneous vaginal delivery the p.m. of 03/15/2024. Her hospital course was unremarkable. She remained afebrile. She was up, voiding without difficulty, ambulating, eating regular diet, and generally without complaints. Time Spent with Patient Time attestation: Total time spent providing and/or coordinating discharge services: Exam Const: General: cooperative, healthy appearing and comfortable Nutritional Appearance: average body habitus Orientation/consciousness: oriented to person, oriented to place and oriented to time HENMT: Head: normal to inspection Resp: Effort & Inspection: normal respiratory effort Cardio: Rate: regular rate Rhythm: regular rhythm Heart sounds: S1 normal heart sound present and S2 normal heart sound present GI: Inspection: normal to inspection ( Fundus firm below the umbilicus) DS: Data Data Completed and Pending Labs on day of discharge: Labs from last 24 hours 03/15/24 03/15/24 06:33 06:32 WBC 14.9 H RBC 3.71 L Hgb 11.5 L Hct 33.8 L MCV 91.1 MCH 31.0 MCHC 34.0 RDW 12.9 Plt Count 163 MPV 12.1 H Immature Gran % (Auto) 5.7 H Neut % (Auto) 66.3 Lymph % (Auto) 17.8 L [place] % (Auto) 8.3 Eos % (Auto) 1.2 Baso % (Auto) 0.7 Lymph # (Auto) 2.65 [place] # (Auto) 1.2 H Eos # (Auto) 0.2 Baso # (Auto) 0.1 Abs Immat Gran (auto) 0.85 H Absolute Neuts (auto) 9.9 H Absolute Nucleated RBC 0.000 Nucleated RBC % 0.0 RPR Non-reactive HIV 1&2 Ab/P24 Ag 4thGn Negative Blood Type B Positive Antibody Screen Negative Discharge Plan Discharge Attending physician on discharge: Ravi Pino Discharging Clinician: Ravi Pino Patient Disposition: Home, Self-Care Activity: may shower and no straining Diet: heart healthy Wound Care Instructions: follow printed instructions Patient Instructions: Antibiotic Form Stand Alone Forms: General Discharge Information Follow-up/Referrals: Ravi Pino MD [Physician] - Discharge Medications: New tramadol 50 mg tablet 50 mg PO Q4H PRN (Reason: pain) Qty: 14 0RF Continued 1 tablet PO DAILY Qty: 100 3RF Date of admission: 03/15/24 04:57 Primary Care Provider: Andrey,Dheeraj Cordoba Admitting Provider: Ravi Pino Attending physician on admission: Ravi Pino Condition: Stable
[2024-03-15] MEDS: OXYTOCIN 30 UNITS/NS 500 ML 30 UNITS/500 ML BAG 125 UNITS IV CONT (20:09)
[2024-03-15] MEDS: ACETAMINOPHEN 325 MG TABLET 650 MG PO (23:33)
[2024-03-15] MEDS: IBUPROFEN 600 MG TABLET PO (23:33)
[2024-03-16] MEDS: traMADol HCL (*CRX) 50 MG TABLET PO ×4 (00:43→23:39)
--- NOTE | 2024-03-16 02:03 | PC.NURSE ---
0015- Pt tearful states that cramping is 7-10 motrin/tylenol not giving her enough relief, This RN called Dr. Layton Guerin- order given for Tramadol 50mg q4-6 hours/prn, as pt has codeine allergy. This RN spoke with pt- she states she gets itchy from codeine, not a true allergy. This RN spoke with Frantz in [facility] and he stated Tramadol was preferred me for pts with a codeine allergy.
[2024-03-16] MEDS: ACETAMINOPHEN 325 MG TABLET 650 MG PO ×3 (04:52→23:39)
[2024-03-16] MEDS: IBUPROFEN 600 MG TABLET PO ×3 (04:52→19:20)
[2024-03-16 05:13] VITALS: BP 110/72; PULSE 87; RESP 18; TEMP 36.6
[2024-03-16 05:25] LABS: Hemoglobin 11.8 g/dL (12.0-15.0)
--- NOTE | 2024-03-16 05:46 | P.PNOB_ITS ---
OB - PN: Subj Subjective Date/time seen: 03/16/24 05:46 Patient comments: no complaints and pain well controlled baby status: doing well OB - PN: Obj Data Labs 03/16/24 04:49 Labs: Laboratory Results - last 24 hr 03/15/24 03/15/24 03/16/24 06:32 06:33 04:49 WBC 14.9 H RBC 3.71 L Hgb 11.5 L 11.8 L Hct 33.8 L 35.0 L MCV 91.1 MCH 31.0 MCHC 34.0 RDW 12.9 Plt Count 163 MPV 12.1 H Immature Gran % (Auto) 5.7 H Neut % (Auto) 66.3 Lymph % (Auto) 17.8 L [place] % (Auto) 8.3 Eos % (Auto) 1.2 Baso % (Auto) 0.7 Lymph # (Auto) 2.65 [place] # (Auto) 1.2 H Eos # (Auto) 0.2 Baso # (Auto) 0.1 Abs Immat Gran (auto) 0.85 H Absolute Neuts (auto) 9.9 H Absolute Nucleated RBC 0.000 Nucleated RBC % 0.0 RPR Non-reactive HIV 1&2 Ab/P24 Ag 4thGn Negative Blood Type B Positive Antibody Screen Negative OB - PN A/P Plan day: 1 Plan: routine care Time Spent With Patient Time: Total time spent is greater than 50% in coordination of care (as documented) at patient's floor/unit and/or counseling patient: Time with patient: less than 15 minutes Exam Const: General: cooperative, healthy appearing and comfortable Nutritional Appearance: average body habitus Orientation/consciousness: oriented to perso n, oriented to place and oriented to time Resp: Effort & Inspection: normal respiratory effort Cardio: Rate: regular rate Rhythm: regular rhythm Heart sounds: S1 normal heart sound present and S2 normal heart sound present GI: Inspection: normal to inspection
[2024-03-16 07:45] VITALS: BP 92/65; PULSE 54; RESP 16; TEMP 36.5; O2SAT 98
[2024-03-16] MEDS: DOCUSATE SODIUM 100 MG CAPSULE PO ×2 (07:56→15:39)
[2024-03-16] MEDS: MULTIVIT/MIN/PREN/FOL AC/IRON TABLET 1 TAB PO (07:56)
--- NOTE | 2024-03-16 09:31 | WPDANLDPN2 ---
Anes-Prog Note L&D Date/Time: 03/16/24 09:31 Comfortable throughout: labor and delivery Neuraxial method: epidural Epidural/Spinal procedure site: tender Neuro status: Neuro function grossly intact. Cardiovascular status: normal Respiratory status: normal Airway patency: baseline Mental status: baseline Post-Op hydration status: normal Vital Signs: Last Vital Signs Temp 36.5 C 03/16/24 07:45 Pulse 54 L 03/16/24 07:45 Resp 16 03/16/24 07:45 BP 92/65 L 03/16/24 07:45 Pulse Ox 98 03/16/24 07:45 O2 Del Method Room Air 03/15/24 18:30 Pain score (VAS): 4/10 I/O: Intake & Output 03/15/24 03/16/24 03/16/24 23:59 07:59 15:59 Intake Total 1100 Output Total 661 Balance 439 Post-procedural complaints: none Patient feedback: Patient satisfied with anesthetic care.
[2024-03-16 12:28] VITALS: BP 83/50; PULSE 64; RESP 16; TEMP 36.5; O2SAT 98
[2024-03-16 19:20] VITALS: BP 87/57; PULSE 65; RESP 16; TEMP 36.3; O2SAT 98
[2024-03-17] MEDS: IBUPROFEN 600 MG TABLET PO (03:45)
--- NOTE | 2024-03-17 07:11 | PM.OBPNVD ---
OB - PN: Subj Subjective Date/time seen: 03/17/24 07:11 Patient comments: no complaints and pain well controlled baby status: doing well OB - PN: Obj Data Labs 03/16/24 04:49 OB - PN A/P Plan day: 2 Plan: routine care, discharge home and follow up 6 weeks Time Spent With Patient Time: Total time spent is greater than 50% in coordination of care (as documented) at patient's floor/unit and/or counseling patient: Time with patient: less than 15 minutes Exam Const: General: cooperative, healthy appearing and comfortable Nutritional Appearance: average body habitus Orientation/consciousness: oriented to person, oriented to place and oriented to time Resp: Effort & Inspection: normal respiratory effort Cardio: Rate: regular rate Rhythm: regular rhythm Heart sounds: S1 normal heart sound present and S2 normal heart sound present GI: Inspection: normal to inspection
[2024-03-17] MEDS: ACETAMINOPHEN 325 MG TABLET 650 MG PO (07:23)
[2024-03-17] MEDS: traMADol HCL (*CRX) 50 MG TABLET PO (07:24)
[2024-03-17 08:50] VITALS: BP 114/79; PULSE 65; RESP 16; TEMP 36.3; O2SAT 100
[2024-03-18 11:14] VITALS: BP 108/71; PULSE 80; RESP 18; TEMP 36.9; O2SAT 100
== END 2024-03-17 09:40 | disposition home or self-care (01) | DRG 560 ==
LOC: ANHLDR 19:50 → ANHOB2 23:24
PROVIDERS: Admitting Provider Obstetrics & Gynecology; PCP Family Medicine; Visit Provider Obstetrics & Gynecology
DX: O80 Encounter for full-term uncomplicated delivery (principal); Z37.0 Single live birth; Z3A.39 39 weeks gestation of pregnancy
CPT/HCPCS: 36415; 85014; 85018; 85025; 86592; 86703; 86850; 86900; 86901; A9270; G0432; J2405; J2590; J2795; J7120

== ENCOUNTER 2024-04-28 04:48 | Day surgery (SDC) | payer OTHER, SELFPAY ==
[2024-04-20 11:14] VITALS: BMI 28.4
--- NOTE | 2024-04-20 11:19 | PC.NURSE ---
Report to the Outpatient Waiting Room, entrance under the green pavilion located off [facility], at time _0730_ on date _[id number]_. Planned Procedure Time: _0930_.? Time changes happen often and if your time is changed the preop area will call you the afternoon before. - You and your visitor will be asked to self-screen and do not enter if you have any COVID symptoms. Please call surgeon if you need to reschedule. - A mask is optional within the hospital at this time. Patients may have clear liquids (water, carbonated beverages, clear teas, apple juice) until 3 hours prior to surgery with a maximum of 20 ounces. - No food from midnight until time of surgery and no smoking Take only the following medications with a SIP of water on the morning of surgery: ___None DO NOT STOP ANY OF YOUR OTHER PRESCRIPTION MEDICATIONS PRIOR TO SURGERY EXCEPT THE FOLLOWING Medications to discontinue per physician ___None Please no make-up, nail mexican, hairspray, perfume, deodorant, or body powder the day of surgery.? No jewelry (including any body piercings) or valuables the day of surgery, leave them at home.? Please take a shower or bath the night before, or the morning of, surgery with an antibacterial soap.? Wear comfortable, loose fitting clothing.? - Jewelry must be removed prior to entering the operating room.? Rings and piercings that are not removed may be cut off. - The hospital will not accept responsibility for valuables.? - Please leave all valuables, including medications, at home the day of surgery. If you are going home after surgery, a licensed double bottom driver must drive you home.? - NO public transportation without another adult if you receive anesthesia. - We recommend that an adult stay with you for 24 hours following discharge. - We also recommend that you do not drive, make important decision, drink alcoholic beverages, or take any drugs that were not prescribed by your health care provider for at least 24 hours after your discharge time. Follow any additional instructions given to you from your surgeon. Telephone instructions given to __Cary__and asked if any additional questions and then verbalized understanding. Patient advised to call surgeon office or pre surgery nurse liaison [phone] if any additional questions.
--- NOTE | 2024-04-27 07:42 | PM.IMHP ---
H&P: HPI History of Present Illness Date/Time: 04/27/24 07:42 Chief Complaint: Desires sterilization Narrative: 29-year-old multiparous female admitted for laparoscopic bilateral tubal ligation. She desires permanent and irreversible sterilization. She has signed the [place] department of Public aid consent form for sterilization the methods reviewed include the exclusive of pills patches injections implants IUDs etc.. She understands this to be completely permanent and irreversible risks and benefits reviewed in great detail. She received the [employer] handout entitled sterilization for men and women. She had all questions answered is to proceed PMFSH Past Medical History Medical History Anemia affecting Compound heterozygous MTHFR mutation [id number] Encounter for elective induction of labor GBS (group B Streptococcus carrier), +RV culture, currently History of gonorrhea Smoker Term Vaginal delivery 12/20/201214014 hrs.6 lbs.12 oz.FVaginalFull Term [facility] [place] Vaginal delivery 01/19/201413710 hrs.6 lbs.FVaginalPremature BirthRegional-EpiduralYDelivered early Low VICENTE,Born in [place] Family History Family History Mother Heart disease Diabetes mellitus Hypertension Acute myocardial infarction Social History Social History Smoking packs per day: 0.5 Smoking cigarettes per day: 10.0 Years smoked: 10 Smoking pack-years: 5.00 Smoking status: Current every day smoker Tobacco type: cigarettes Alcohol intake: never Substance use: never Substance use type: marijuana Other substance usage details: Daily Do You Feel Safe in your Home?: Yes Lack of Transportation: No Lack of Food: Never True Current Housing: I Have Housing Concerned About Future Housing: No Difficulty Paying Gas/Electric Bills: No Difficulty Paying for Meds: No Currently Unemployed: No Education: High School Diploma/GED Difficulty w/ Childcare or Family Care: No Living arrangements: with family Occupation/Education: unemployed Gender identity (if verbalized by the patient): Female Sexual Orientation (if Verbalized by the Patient): Straight or Heterosexual Spiritual care concerns: No Agree to blood products: Yes Meds Home Medications and Allergies Home Medications Medication Instructions Recorded Confirmed Type No Home Medications 04/20/24 04/20/24 History Allergies Allergy/AdvReac Type Severity Reaction Status Date / Time codeine Allergy Itching Verified 04/20/24 11:13 Exam Const: General: cooperative, healthy appearing, comfortable and average body habitus Orientation/consciousness: oriented to person, oriented to place and oriented to time Resp: Effort & Inspection: normal respiratory effort Cardio: Rate: regular rate Rhythm: regular rhythm Heart sounds: S1 normal heart sound present and S2 normal heart sound present GI: Inspection: normal to inspection : External Female Exam: normal external appearance Speculum Exam - Vagina: normal appearance of the vagina Speculum Exam - Cervix: normal appearance of the cervix Bimanual exam- vagina & uterus: non-tender Bimanual Exam- Adnexa, other: normal adnexae Assessment and Plan Assessment and plan (1) Sterilization: Code(s): Z30.2 - Encounter for sterilization Status: Acute Assessment and Plan: Proceed with laparoscopic bilateral tubal ligation
[2024-04-28] VITALS (14 sets, daily range): BP systolic 105–131; BP diastolic 60–89; PULSE 64–100; RESP 12–22; TEMP 36–36.6; O2SAT 96–100
--- NOTE | 2024-04-28 06:59 | WPDHPUPDATE1 ---
History and Physical Update Update Date/Time: 04/28/24 06:59 History and Physical has been reviewed, including an updated exam of the patient. There are NO changes in the patient's condition. Risks, benefits, and alternatives have been discussed and questions answered. Patient agrees to proceed with procedure.
[2024-04-28 08:02] LABS: BEDSIDEPREGUCG Negative (Negative)
[2024-04-28] MEDS: ACETAMINOPHEN 500 MG TABLET 1000 MG PO (08:10)
[2024-04-28] MEDS: KETOROLAC 15 MG/ML VIAL (*BKC) IV PUSH (08:15)
[2024-04-28] MEDS: LACTATED RINGERS 1,000 ML 30 ML IV CONT ×2 (08:15→09:43)
--- NOTE | 2024-04-28 08:39 | WPDANESEPPF ---
Anes - Initial Pre Proc Eval Procedure: Operation Date: 04/28/24 09:30 Proposed Procedures p Laparoscopic Bilateral Tubal Sterilization with Fallopian Rings - Ravi Guerin MD Date/Time: 04/28/24 08:39 Surgeon: Ravi Guerin MD Pre Op Diagnosis: desires sterilization Patient Data Age: 29 Gender: F Height: 1.57 m Weight: 70.5 kg Last Vital Signs Temp 96.8 F L 04/28/24 08:14 Pulse 65 04/28/24 08:14 Resp 18 04/28/24 08:14 BP 105/65 04/28/24 08:14 Pulse Ox 99 04/28/24 08:14 O2 Del Method Room Air 04/28/24 08:14 Allergies Allergy/AdvReac Type Severity Reaction Status Date / Time codeine Allergy Itching Verified 04/28/24 07:50 Home Medications Medication Instructions Recorded Confirmed Type No Home Medications 04/20/24 04/28/24 History Laboratory Tests 04/28/24 07:56 POC Urine HCG, Qual Negative (Negative) Patient hx anesthesia problems: none Family hx anesthesia problems: none Results Review: All pre-operative results and documents have been reviewed as part of the pre-operative evaluation. PENDING SALE TO [facility] Past Medical History Medical History Anemia affecting Compound heterozygous MTHFR mutation [id number]/[id number] Encounter for elective induction of labor GBS (group B Streptococcus carrier), +RV culture, currently History of gonorrhea Smoker Term Vaginal delivery 12/20/201214014 hrs.6 lbs.12 oz.FVaginalFull Term [facility] [place] Vaginal delivery 01/19/201413710 hrs.6 lbs.FVaginalPremature BirthRegional-EpiduralYDelivered early Low VICENTE,Born in [place] Family History Family History Mother Heart disease Diabetes mellitus Hypertension Acute myocardial infarction Social History Social History Smoking packs per day: 0.5 Smoking cigarettes per day: 10.0 Years smoked: 10 Smoking pack-years: 5.00 Smoking status: Current every day smoker Tobacco type: cigarettes Alcohol intake: never Substance use: never Substance use type: marijuana Other substance usage details: Daily Do You Feel Safe in your Home?: Yes Lack of Transportation: No Lack of Food: Never True Current Housing: I Have Housing Concerned About Future Housing: No Difficulty Paying Gas/Electric Bills: No Difficulty Paying for Meds: No Currently Unemployed: No Education: High School Diploma/GED Difficulty w/ Childcare or Family Care: No Living arrangements: with family Occupation/Education: unemployed Gender identity (if verbalized by the patient): Female Sexual Orientation (if Verbalized by the Patient): Straight or Heterosexual Spiritual care concerns: No Agree to blood products: Yes Anes - Eval Final PreProcedure Day of Procedure 04/28/24 08:39 Patient weight: overweight Heart: regular rate and rhythm Lungs: clear to auscultation Airway: Mallampati scale and special considerations (R lower crown prev fell out and pt simply reattached it on her own, appears to be stable. ) Neurological: alert and oriented Last oral intake: >/= 8 hours ASA classification: II Emergent: no Anesthetic plan: proceed Anesthesia type and monitoring: general ETT and standard monitoring Results Review: All pre-operative results and documents have been reviewed as part of the pre-operative evaluation. Smoker, 1/2 ppd for many years, smoked this am prior to arrival. Informed Consent: The patient's anesthetic plan and its attendant risks and benefits were discussed with the patient/family/POA. Questions were solicited and answers provided to the satisfaction of the patient/family/POA.
--- NOTE | 2024-04-28 09:33 | W.PM.PROC2 ---
Procedure Note - Detailed Date of Procedure 04/28/24 Pre-op Diagnosis desires sterilization Post-op Diagnosis Same Procedure Performed Laparoscopic bilateral tubal ligation via silastic rings Surgeon Ravi Guerin MD Anesthesia General Indications 29-year-old multiparous patient desires permanent sterilization Findings normal-appearing ovaries uterus and tubes Description of Procedure the patient is prepped draped in the normal sterile fashion and placed in the dorsal lithotomy position. bladder was emptied of clear urine. The weighted speculum placed in the cervix grasped with a single-tooth tenaculum. The Ortega's cannula inserted attached to the single-tooth to be used later for uterine manipulation. The weighted speculum was removed the gloves were changed. An infraumbilical incision made Veress needle passed in the abdomen abdomen filled with CO2 gas [id number]. The 5mm trocar advanced in the abdomen downside visualized injury seen. Patient placed in Trendelenburg and a suprapubic incision. The 8mm trocar advanced under direct visualization assuring injury. The right fallopian tube was grasped and a good knuckle of tube formed with Falope ring. The blanching was seen with the tissue between. Similar fashion on left the tube was grasped with a good knuckle of tube formed at the midportion again good blanching was noted. The remainder the pelvis appeared within normal limits. Trocars removed after gas from the abdomen. The incisions closed with 4-0 Monocryl and glue. Patient was awakened went to recovery in satisfactory condition. All sponge, needle, instrument counts were correct. There were no immediate complications Implants fallopian tube rings Estimated Blood Loss 5 Drains No Packing No Pathology None sent Complications No immediate complications Condition Stable Disposition PACU
[2024-04-28] MEDS: fentaNYL CITRATE INJ (*CRX) 100 MCG/2 ML VIAL 25 MCG IV PUSH ×8 (10:01→10:22)
[2024-04-28] MEDS: ONDANSETRON INJ 4 MG/2 ML VIAL IV PUSH (10:01)
[2024-04-28] MEDS: HYDROmorphone HCL INJ (*CRX) 1 MG/ML SYR 0.25 MG IV PUSH ×4 (10:39→12:39)
[2024-04-28] MEDS: diazePAM INJ (*CRX) 10 MG/2 ML SYRINGE 2 MG IV PUSH (10:42)
--- NOTE | 2024-04-28 12:00 | SUR.PHASEII ---
MD Lockhart contacted - pt request pain pill prior to discharge. States that her allergy to codeine is itching. However, she states that she has had oxycodone in the past with no issues. New orders for RN to give 5mg oxycodone PO.
[2024-04-28] MEDS: oxyCODONE HCL (*CRX) 5 MG TAB IR PO (12:07)
[2024-04-28] MEDS: diphenhydrAMINE HCl INJ 50 MG/ML VIAL 12.5 MG IV PUSH (12:28)
== END 2024-04-28 13:30 | disposition home or self-care (01) ==
PROVIDERS: PCP Family Medicine; Visit Provider Obstetrics & Gynecology
PROC: (CPT 58671; principal; 2024-04-28 09:30)
DX: Z30.2 Encounter for sterilization (principal); E72.12 Methylenetetrahydrofolate reductase deficiency; F17.210 Nicotine dependence, cigarettes, uncomplicated; F12.90 Cannabis use, unspecified, uncomplicated
CPT/HCPCS: 58671; A4264; A9270; J1100; J1171; J1200; J1885; J2003; J2250; J2405; J2704; J3010; J3360; J7120